=== PATIENT | male | born 1980 | race Hispanic/Latino ===

== ENCOUNTER 2017-02-03 23:19 | Observation (INO) | payer SELFPAY ==
[2017-02-03 23:46] LABS: Bilirubin Negative (Negative); Blood, Urine Negative (Negative); Glucose, Urine (Dipstick) Negative (Negative); Ketone, Urine Negative (Negative); Nitrite Negative (Negative); Protein, Urine (Dipstick) Negative (Neg-Trace); Urobilinogen 0.2 mg/dL (0.2-1.0)
[2017-02-03] MEDS ORDERED: Morphine 4 MG/ML VIAL ONE (23:57)
[2017-02-03] MEDS ORDERED: Ondansetron HCl/PF 4 MG/2 ML Vial ONE (23:57)
[2017-02-04 00:14] LABS: ALT (SGPT) 21 U/L (8-55); AST (SGOT) 19 U/L (5-34); Alkaline Phosphatase 91 U/L (40-150); Anion Gap 11 mmol/L (10-20); BUN (Urea Nitrogen) 16 mg/dL (8.9-20.6); Bilirubin, Total 0.3 mg/dL (0.2-1.2); Calc. Creatinine Clearance 0 mL/min (70-130); Calcium 9.3 mg/dL (7.8-10.44); Carbon Dioxide 27 mmol/L (22-29); Chloride 103 mmol/L (98-107); Estimated GFR-MDRD 85; Globulin 3.1 g/dL (2.4-3.5); Lipase 15 U/L (8-78); Protein, Total 7.3 g/dL (6.0-8.3)
[2017-02-04 00:16] LABS: #Eosinphils 0.1 thou/uL (0.0-0.7); #Lymphocytes 3.8 thou/uL (1.20-3.40); #Monocytes 0.5 thou/uL (0.11-0.59); #Neutrophils 9.8 thou/uL (1.40-6.50); %Basophils 0.3 % (0.0-1.0); %Eosinophils 0.9 % (0.0-10.0); %Lymphocytes 26.8 % (21.0-51.0); %Monocytes 3.7 % (0.0-10.0); Hematocrit 45.4 % (42.0-52.0); Mean Platelet Volume 7.6 fL (7.4-10.4); Red Blood Cell (RBC) Count 5.07 mill/uL (4.70-6.10); White Blood Cell (WBC) Count 14.3 thou/uL (4.8-10.8)
[2017-02-04] MEDS ORDERED: Morphine 4 MG/ML VIAL ONE (01:15)
[2017-02-04 03:02] VITALS: BMI 30.7
[2017-02-04] MEDS ORDERED: Ondansetron HCl/PF 4 MG/2 ML Vial IVP PRN ×3 (03:22→10:43)
[2017-02-04] MEDS ORDERED: Ondansetron ODT 4 MG TAB SL PRN (03:22)
[2017-02-04] MEDS ORDERED: Sodium Chloride 0.9% 1,000 ML IV SCH ×2 (03:22→10:43)
[2017-02-04] MEDS ORDERED: Morphine 2 mg/2ml in 0.9% NaCl PF SYRINGE SLOW IVP PRN (03:23)
[2017-02-04] MEDS ORDERED: Morphine 4 MG/ML VIAL SLOW IVP PRN ×3 (03:24→10:43)
[2017-02-04] MEDS ORDERED: Acetaminophen 1,000 MG in Premix Bag 1 BAG IVPB SCH (04:15)
--- NOTE | 2017-02-04 08:28 | ULT ---
PRELIMINARY REPORT/[facility]/EMERGENCY AFTER HOURS PROCEDURE: Addendum created by Valente Cordero MD on 02/04/2017 2:12 AM Central Time ([place] & [place]) Suggestion of a gallstone at the neck of the gallbladder. Initial Report created on 02/04/2017 12:46 AM Central Time ([place]) EXAM: US Abdomen Limited, Right Upper Quadrant EXAM DATE/TIME: Exam ordered 02/04/2017 12:06 AM CLINICAL HISTORY: 36 years old, male; Pain; Other: Ruq pain, n/v, elevated wbcs TECHNIQUE: Real-time ultrasound of the right upper quadrant with image documentation. COMPARISON: No relevant prior studies available. FINDINGS: Liver: Unremarkable. No mass. No intrahepatic bile duct dilation. Gallbladder: Gallbladder is distended and full of sludge. Sonographic Pretty sign is positive. Gallbladder wall is mildly thickened. Equivocal pericholecystic fluid. Common bile duct: Common bile duct is dilated at 9 mm in caliber. No stones. Pancreas: Unremarkable as visualized. Right kidney: Unremarkable. No stones. No solid mass. No hydronephrosis. IMPRESSION: 1. Gallbladder is distended and full of sludge. Positive sonographic Pretty sign and color wall thick ening are compatible with acute cholecystitis. 2. Dilated common bile duct at 9 mm in caliber. If there is clinical concern for distal CBD obstructi on, recommend CT abdomen and pelvis, preferably with intravenous contrast. Thank you for allowing us to participate in the care of your patient. Dictated and Authenticated by: Valente Cordero MD 02/04/2017 12:46 AM Central Time ([place] FINAL REPORT RIGHT UPPER QUADRANT ULTRASOUND: DATE: 02/04/17. COMPARISON: None. HISTORY: Right upper quadrant pain, elevated white blood cell count. FINDINGS: I agree with the preliminary [facility] report. The pancreas is obscured by bowel gas. There is no focal liver lesion or intrahepatic biliary dilatation. The human resources receptionist reports a positive Pretty's sign. The gallbladder is filled with echogenic material suggesting gallbladder filled with sludge. Minimal pericholecystic fluid is seen. The common bile duct is dilated, measuring 9 mm. Gallbladder wall is upper limits of normal in thick ness. The right kidney measures 10.1 cm in craniocaudal dimension and demonstrates no stone, hydronephrosis , or mass. IMPRESSION: 1. The gallbladder is filled with sludge, there is mild gallbladder wall thickening, and there is mi nimal pericholecystic fluid. These findings in combination with a positive Pretty's sign are compati ble with acute cholecystitis. 2. Dilated common bile duct, measuring 9 mm. This suggests biliary obstructive process, possibly on the basis of nonvisualized stone or sludge within the common bile duct. POS: BALWINDER
[2017-02-04 08:34] VITALS: BP 122/82; TEMP 98.5
[2017-02-04] MEDS ORDERED: cefOXitin Sodium 2 GM, Syringe 1 ML in Sterile Water 10 ML SLOW IVP SCH (08:45)
[2017-02-04] MEDS ORDERED: Bupivacaine/Epinephrine 0.25% 30 ML VIAL ONE (08:47)
[2017-02-04] MEDS ORDERED: Iothalamate Meglumine 60% 50 ML VIAL FS ONE (08:47)
[2017-02-04] MEDS ORDERED: Fentanyl 250 MCG/5 ML VIAL ONE (08:53)
--- NOTE | 2017-02-04 10:18 | OP ---
DATE OF PROCEDURE: 02/04/2017 PREOPERATIVE DIAGNOSIS: Acute cholecystitis. POSTOPERATIVE DIAGNOSIS: Acute cholecystitis. PROCEDURE PERFORMED: Laparoscopic cholecystectomy. SURGEON: Dr. Chong. ANESTHESIA: General. ESTIMATED BLOOD LOSS: Minimal. COMPLICATIONS: None. SPECIMEN: Gallbladder. FINDINGS: Normal postop cholangiogram. TECHNIQUE: The patient was taken to the operating room and placed on the supine table. After genera l anesthetic was obtained, the abdomen was shaved, prepped and draped in a sterile fashion. Curved i ncision made below the umbilicus. Cautery was used to dissect down to and score the fascia. Abdomin al cavity entered bluntly using a Vidhi clamp. Holding stitch of PDS was placed on each side of the fascia. Bassett trocar was placed. High-flow pneumoperitoneum was obtained. An upper midline 5-mm p ort and two right upper quadrant 5-mm ports were placed under direct visualization. Gallbladder was retracted from the gallbladder fossa. The peritoneum was opened anteriorly and posteriorly. Critica l view triangle was seen showing only the cystic duct and cystic artery branching from medial to late ral and there were no other branching structures. A clip was placed high on the cystic duct. A smal l ductotomy was made just proximal to that. Cholangiocatheter was brought in through a separate stab incision and a cholangiogram was performed, which shows good contrast flow into the duodenum, right and left hepatic duct without evidence of obstruction. The cholangiocatheter was removed. Two clips were placed proximally on the cystic duct and one distally, and the cystic duct cut using laparoscop ic scissors. Cystic artery was taken in the same way. Cautery was used to dissect the gallbladder o ut of the gallbladder fossa. The gallbladder was placed in an Endo catch bag and brought through the Bassett. No bleeding in the liver bed. All port sites were infiltrated using local anesthetic. All ports were removed under camera visualization. Pneumoperitoneum was let down. PDS was used to clos e the fascial defect below the umbilicus. All incisions were irrigated and closed using 4-0 Monocryl and Dermabond. The patient went to recovery in stable condition. All instrument counts, needle cou nts, and lap counts were correct.
[2017-02-04] MEDS ORDERED: Promethazine HCl 25 MG/ML VIAL IM PRN ×2 (10:25→10:43)
[2017-02-04] MEDS ORDERED: Promethazine HCl 25 MG/ML VIAL SLOW IVP PRN (10:25)
[2017-02-04] MEDS ORDERED: Dextrose 50% Abboject 50 ML SYRINGE SLOW IVP PRN (10:43)
[2017-02-04] MEDS ORDERED: HYDROcodone/Acetaminophen 10/325 mg Tablet PO PRN ×2 (10:43)
[2017-02-04] MEDS ORDERED: Mag-Al 1200 mg/1200 mg/30 ML UDCUP PO PRN (10:43)
[2017-02-04] MEDS ORDERED: Dextrose 5% in Water 1,000 ML IV PRN (10:43)
[2017-02-04] MEDS ORDERED: Calcium Carbonate 500 MG ChewTAB PO PRN (10:43)
[2017-02-04] MEDS ORDERED: hydrALAZINE 20 MG/ML VIAL SLOW IVP PRN (10:43)
--- NOTE | 2017-02-04 16:01 | RAD ---
CHOLANGIOGRAM IN SURGERY: History: Acute cholecystitis. FINDINGS/IMPRESSION: Two spot fluoroscopic intraoperative images of the right upper quadrant during a cholangiogram demons trates opacification of the left common bile duct, pancreatic duct, and cystic duct without filling d efects. There is contrast in the second portion of the duodenum. POS: BALWINDER
[2017-02-04] MEDS ORDERED: Dexamethasone 20 MG/5 ML VIAL ONE (16:23)
[2017-02-04] MEDS ORDERED: Ondansetron HCl/PF 4 MG/2 ML Vial ONE (16:23)
[2017-02-04] MEDS ORDERED: Glycopyrrolate 0.2 MG/ML 5 ML SYRINGE ONE (16:23)
[2017-02-04] MEDS ORDERED: Propofol 200 MG/20 ML VIAL ONE (16:23)
[2017-02-04] MEDS ORDERED: Ketorolac Tromethamine 30 MG/ML VIAL ONE (16:23)
[2017-02-04] MEDS ORDERED: Lidocaine 1% PF 5 ML VIAL ONE (16:23)
[2017-02-04] MEDS ORDERED: Famotidine 20 MG TAB PO SCH (21:00)
[2017-02-04] MEDS ORDERED: Famotidine/PF 20 mg/2ml Vial SLOW IVP SCH (21:00)
== END 2017-02-04 14:37 | disposition home or self-care (01) ==
LOC: ERS 23:19 → SJJU 02-04 02:47
PROVIDERS: ADMIT Surgery; ATTEND Surgery
PROC: 0FT44ZZ Resection of Gallbladder, Percutaneous Endoscopic Approach (ICD-10-PCS; principal; 2017-02-04)
PROC: BF131ZZ Fluoroscopy of Gallbladder and Bile Ducts using Low Osmolar Contrast (ICD-10-PCS; 2017-02-04)
DX: K80.10 Calculus of gallbladder with chronic cholecystitis without obstruction (principal)
CPT/HCPCS: 36415; 47532; 76705; 80053; 81003; 83690; 85025; 88304; 96361; 96374; 96375; 96376; A4216; G0378; J0131; J0694; J1100; J1885; J2001; J2270; J2405; J2704; J3010; Q9961

== ENCOUNTER 2023-03-29 20:22 | Emergency (ER) | payer SELFPAY ==
[2023-03-29] MEDS ORDERED: Ketorolac Tromethamine 30 MG (1 mL) VIAL ONE (21:21)
== END 2023-03-29 23:02 | disposition home or self-care (01) ==
LOC: ERS 20:22
DX: R07.9 Chest pain, unspecified (principal); V89.2XXA Person injured in unspecified motor-vehicle accident, traffic, initial encounter; W22.12XA Striking against or struck by front passenger side automobile airbag, initial encounter
CPT/HCPCS: 71045; 96372; J1885